=== PATIENT | male | born 1975 | race Caucasian/White ===

== ENCOUNTER 2016-08-02 12:27 | Emergency (ER) | payer OTHER ==
[2016-08-02 12:35] VITALS: TEMP 98.1
--- NOTE | 2016-08-02 12:42 | CPEKG ---
Heart Rate: 76 RR Interval: 789 P-R Interval: 140 QRSD Interval: 104 QT Interval: 396 QTC Interval: 446 P Conesus: 47 QRS Conesus: 43 T Wave Conesus: 12 EKG Severity - NORMAL ECG - EKG Impression: SINUS RHYTHM Electronically Signed By: Олег Davies 02-Aug-2016 13:39:18
[2016-08-02] MEDS ORDERED: ASPIRIN 81 MG CHEWABLE TAB PO ONE (12:44)
[2016-08-02] MEDS ORDERED: NS 1,000 ML IV ONE (12:44)
[2016-08-02 12:52] LABS: % IMMATURE GRANULYOCYTES 0.2 % (0.0-1.1); ABSOLUTE IMMATURE GRANULOCYTES 0.01 10^3/uL (0.00-0.10); ADD DIFF? NO; ADD MORPH? NO; ADD SCAN? NO; ATYPICAL LYMPHOCYTE FLAG 0 (0-99); FRAGMENT RBC FLAG 0 (0-99); HEMATOCRIT 41.3 % (40.0-51.0); HEMOGLOBIN 14.9 g/dL (13.7-17.5); LEFT SHIFT FLG 0 (0-99); LIPEMIA HEMOLYSIS FLAG 90 (0-99); MEAN CELL HEMOGLOBIN 32.5 pg (27.9-34.1); MEAN CELL HEMOGLOBIN CONCENTR. 36.1 g/dL (32.4-36.7); MEAN PLATELET VOLUME 9.8 fL (8.7-11.7); PLATELET CLUMPS FLAG 0 (0-99); PLATELET COUNT 275 10^3/uL (150-400); RED BLOOD CELL COUNT 4.59 10^6/uL (4.40-6.38); RED CELL DISTRIBUTION WIDTH 11.7 % (11.5-15.2)
[2016-08-02 13:02] LABS: APTT 25.9 SEC (23.0-38.0); INR 1.08 (0.83-1.16); PROTIME(PATIENT) 13.9 SEC (12.0-15.0)
--- NOTE | 2016-08-02 13:06 | EDPHY ---
H & P Stated Complaint: Light headed, Chest tightness, increased heart rate, l arm tingling Source: Patient, Family Exam Limitations: No limitations - Personal History Current Tetanus Diphtheria and Acellular Pertussis (TDAP): Yes - Medical/Surgical History Hx Asthma: No Hx Chronic Respiratory Disease: No Hx Diabetes: No Hx Cardiac Disease: No Hx Renal Disease: No Hx Cirrhosis: No Hx Alcoholism: No Hx HIV/AIDS: No Hx Splenectomy or Spleen Trauma: No Other PMH: denies - Social History Smoking Status: Never smoked HPI/ROS: CHIEF COMPLAINT: Chest tightness HISTORY OF PRESENT ILLNESS: Patient complains of sudden onset of chest tightness, lightheadedness and some left upper extremity tingling. This all started while working this afternoon at a desk. This been present now for the past 1-2 hours. Constant in duration. [id number] severity. No worse with exertion. Does not seem to radiate. No shortness of breath, cough, fever or complaints of illness. No neck pain or stiffness. No headache. No trauma or injury. No abdominal complaints. No lower extremity erythema edema or pain. No history of venous thrombolic event. No other associated complaints or modifying factors. FAMILY HISTORY CARDIAC: Maternal grandparents with [place] in their 80s. PRIOR CARDIAC WORKUP: No prior workup REVIEW OF SYSTEMS: Ten systems reviewed and are negative unless otherwise noted in the HPI EXAMINATION: General Appearance: Alert, no distress Head: normocephalic, atraumatic Eyes: Pupils equal and round, no conjunctival pallor or injection. Right leg that is baseline chronically ENT, Mouth: Mucous membranes moist. Uvula midline. Neck: Normal inspection, supple, non-tender Respiratory: Lungs are clear to auscultation. No wheezing, rhonchi or crackles. Cardiovascular: Regular rate and rhythm. No murmur. Pulses intact distally. Gastrointestinal: Abdomen is soft and nontender. No tympany rigidity. Neurological: GCS 15. A&O, nonfocal, strength symmetric in all 4 limbs. No pronator drift. No dysmetria. Patellar reflexes symmetric. Skin: Warm and dry, no rash. No petechiae or purpura Extremities: Nontender, no pedal edema Psychiatric: Mood and affect normal DIFFERENTIAL DIAGNOSES: Including but not limited to in no particular order: Acute Chest Pain, ACS, Stable Angina, Pneumonia, PE, duodenitis, gastritis, esophagitis, GERD MDM: 12:45 p.m. Chest tightness with lightheadedness, dizziness, left upper extremity paresthesia and feelings of tachycardia at home. Vital signs are stable here. No acute findings. Laboratory studies, chest x-ray are pending at this time. 1:58 p.m. troponin negative. Laboratory studies are negative. Vital signs stable. He has been evaluated by Dr. Davies. Both feel the patient is more likely experiencing pain to stress or anxiety. Given the onset of his symptoms, we will observe him until 3 o'clock and check a troponin at that time. Patient is comfortable with that plan. 3:15 p.m. Repeat troponin has been drawn. Patient will be discharged home if this returns negative. EKG: Interpreted by Dr. Davies SUPERVISION: Patient was evaluated in conjunction with the supervising physician. Please see their note for details. (Ciaran Rizvi) Constitutional: Initial Vital Signs Temperature (C) 98.1 F 08/02/16 12:33 Heart Rate 87 08/02/16 12:33 Respiratory Rate 20 08/02/16 12:33 Blood Pressure 157/89 H 08/02/16 12:33 O2 Sat (%) 99 08/02/16 12:33 O2 Delivery Mode Room Air Allergies/Adverse Reactions: No Known Allergies Allergy (Unverified 08/02/16 12:35) Home Medications: Medication Instructions Recorded NK [No Known Home Meds] 08/02/16 Medical Decision Making - Diagnostics EKG Interpretation: EKG: Complete interpretation has been separately recorded in the [employer] archive. Summary impression: Sinus rhythm (Олег Davies) Other Provider: I evaluated and participated in the management of the patient. I also evaluated the patient independently. My co-signature indicates that I have reviewed this chart and I agree with the findings and plan of care as documented. My personal H&P findings include: The patient presents to the ED after he developed some lightheadedness and vague paresthesias in his left arm approximately 2 hours prior to arrival. The patient does admit to being under fairly significant stress this we can. The patient has no risk factors for coronary artery disease. The patient is currently asymptomatic. 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 He has not had any exertional chest pain or shortness of breath. PHYSICAL EXAM: General Appearance: Alert, no distress Eyes: Pupils equal and round no pallor or injection ENT, Mouth: Mucous membranes moist Respiratory: There are no retractions, lungs are clear to auscultation Cardiovascular: Regular rate and rhythm Gastrointestinal: Abdomen is soft and nontender, no masses, bowel sounds normal Neurological: A&O, normal motor function, normal sensory exam, normal cranial nerves Skin: Warm and dry, no rashes Musculoskeletal: Neck is supple nontender Extremities: symmetrical, full range of motion The patient presents to the ED after an episode of lightheadedness. The patient had this happen in the setting of some increasing stress at work. His EKG demonstrates no evidence of ischemia. Initial troponin is normal. Plan will be for 4 hour repeat troponin in the ED. The patient is comfortable being discharged home if this is negative. He will follow up with Cardiology for consideration of additional testing. He will be discharged home with customary aftercare instructions. (Олег Davies) - Data Points Laboratory Results: Laboratory Results 08/02/16 12:45 08/02/16 12:45 Medications Given: Discontinued Medications Aspirin (Aspirin) 324 mg PO EDNOW ONE Stop: 08/02/16 12:45 Last Admin: 08/02/16 13:02 Dose: 324 mg Sodium Chloride (Ns) 1,000 mls @ 0 mls/hr IV ONCE ONE PRN Reason: Wide Open Stop: 08/02/16 12:45 Last Admin: 08/02/16 13:44 Dose: Not Given Departure - Departure Disposition: Home, Routine, Self-Care Clinical Impression: Stress Chest pain Qualifiers: Chest pain type: unspecified Qualified Code(s): R07.9 - Chest pain, unspecified Condition: Good Instructions: Chest Pain (ED), Stress (ED) Additional Instructions: 1. Based upon the testing done in the Emergency Department today we see no evidence of a heart attack. 2. We are unable to fully exclude coronary artery disease based upon the testing available in the Emergency Department. 3. For this reason, we would like you to be seen by cardiology for consideration of additional testing within the next 3 days. 4. Please contact the social director you have been referred to to schedule this appointment as soon as possible. Their offices are typically open from 8:30am- 5pm M-F. 5. Please return to the Emergency Department immediately for any recurrent chest pain, difficulty breathing or other concerns. Referrals: ELIZABETH ACUNA [Primary Care Provider] - As per Instructions Duke Rees MD [Medical Doctor] - As per Instructions
[2016-08-02 13:07] LABS: ANION GAP 13 mEq/L (8-16); CALCIUM 9.4 mg/dL (8.5-10.4); CARBON DIOXIDE 22 mEq/l (22-31); CHLORIDE 98 mEq/L (97-110); CREATININE 0.7 mg/dL (0.7-1.3); GLOMERULAR FILTRATION RATE > 60; GLUCOSE 113 mg/dL (70-100); POTASSIUM 3.7 mEq/L (3.5-5.2); SODIUM 133 mEq/L (134-144)
[2016-08-02 13:30] LABS: TROPONIN I < 0.012 ng/mL (0-0.034)
[2016-08-02 13:45] VITALS: RESP 16
[2016-08-02 15:52] VITALS: BP 140/82; PULSE 75; O2SAT 96
[2016-08-05 17:48] LABS: CHOLESTEROL 220 mg/dL (140-200); CHOLESTEROL/HDL RATIO 3.19 RATIO (1.00-4.97); HIGH DENSITY LIPOPROTEIN 69 mg/dL (40-65); LDL/HDL RATIO 2.03 RATIO (1.00-3.64); LOW DENSITY LIPOPROTEIN 140 mg/dL (70-100); NON-HIGH DENSITY LIPOPROTEIN 151 mg/dL (90-129); TRIGLYCERIDE 55 mg/dL (40-150); VERY LOW DENSITY LIPOPROTEINS 11 mg/dL (8-25)
== END 2016-08-02 15:47 | disposition home or self-care (01) ==
DX: F43.9 Reaction to severe stress, unspecified (principal)